=== PATIENT | female | born 1965 | race African-American/Black ===

== ENCOUNTER 2020-01-10 18:05 | Observation (INO) ==
[2020-01-10 19:01] LABS: Amorphous Crystals,Urine Few /HPF (Few); Apearance,Urine CLOUDY (Clear); Bilirubin,Urine Negative (Negative); Blood, Urine Negative (Negative); Glucose,Urine (UA) Negative (Negative); Ketones,Urine 5 mg/dL (Negative); Mucus,Urine Many /LPF (Occasional); Nitrite,Urine Negative (Negative); Protein,Urine 100 MG/DL; RBC,Urine 2 /HPF (0-4); Squamous Epithelial Cell,Urine Occasional /HPF (0-10); Urine Specific Gravity 1.026 (1.001-1.035); Urine Urobilinogen < 2.0 EU/DL (0.2-1.0); WBC,Urine 5 /HPF (0-6)
[2020-01-10 19:02] LABS: Urine Color Yellow (Yellow)
[2020-01-10 19:11] LABS: Basophils # 0.1 10*3/uL (0.0-0.2); Basophils % 0.4 % (0.0-0.8); Eosinophils # 0.1 10*3/uL (0.0-0.87); Eosinophils % 0.6 % (0.00-10.9); Hematocrit 42.9 VOL% (35.7-47.0); Hemoglobin 13.6 GM/DL (12.0-16.0); Immature Granulocytes % 0.3 %; Immature Granulocytes Absolute 0.04 #; Lymphocytes # 1.9 10*3/uL (1.4-4.0); Lymphocytes % 15.7 % (21.3-54.2); Mean Corpuscular HGB Conc 31.7 GM/DL (32-36); Mean Corpuscular Volume 87.2 FL (87-102); Mean Platelet Volume 12.2 FL (9.6-12.0); Monocytes % 4.6 % (1.7-12.7); Neutrophils % 78.4 % (38.7-73.9); Platelet Count 282 T/CUMM (130-400); Red Blood Count 4.92 MC/CUMM (3.8-5.5); Red Cell Distribution Width 15.9 % (9.3-17.3); White Blood Count 11.9 T/CUMM (4-12)
[2020-01-10 19:35] LABS: Albumin 4.1 G/DL (3.4-5.0); Bilirubin,Total 1.3 MG/DL (0.2-1.0); Calcium 9.4 MG/DL (8.5-10.1); Osmolality,Calculated 267.4 MOS/KG (273-304); Total Protein 9.2 G/DL (6.4-8.3)
[2020-01-10] MEDS ORDERED: HYDROmorphone 2 MG/1 ML VIAL IV STA (21:25)
[2020-01-10] MEDS ORDERED: SODIUM CHLORIDE 0.9% 500 ML IV STA (21:25)
[2020-01-10] MEDS ORDERED: ONDANSETRON 4 MG/2 ML VIAL IV STA ×2 (21:25→23:41)
[2020-01-10] MEDS ORDERED: HYDROmorphone 2 MG/1 ML VIAL ONE (21:26)
[2020-01-10] MEDS ORDERED: ONDANSETRON 4 MG/2 ML VIAL ONE (21:26)
[2020-01-10] MEDS ORDERED: PROMETHAZINE 25 MG/1 ML VIAL ONE (23:57)
[2020-01-10] MEDS ORDERED: diphenhydrAMINE 50 MG/1 ML VIAL IV STA (23:59)
[2020-01-10] MEDS ORDERED: PROMETHAZINE 25 MG/1 ML VIAL IM STA (23:59)
[2020-01-11] MEDS ORDERED: GLUCAGON 1 MG VIAL IM PRN (02:08)
[2020-01-11] MEDS ORDERED: ACETAMINOPHEN 325 MG TABLET PO PRN (02:08)
[2020-01-11] MEDS ORDERED: DEXTROSE 10% 250 ML BAG IV PRN (02:11)
[2020-01-11] MEDS: ONDANSETRON 4 MG/2 ML VIAL IV PRN ×3 (02:32→20:11)
[2020-01-11] MEDS: HYDROmorphone 2 MG/1 ML VIAL IV PRN ×6 (02:35→20:19)
[2020-01-11] MEDS: SODIUM CHLORIDE 0.9% 1,000 ML IV SCH ×2 (02:36→15:24)
[2020-01-11] MEDS: PIPERACILLIN/TAZOBACTAM 3,375 MG in SODIUM CHLORIDE 0.9% 100 ML IV SCH ×2 (04:42→15:26)
[2020-01-11] MEDS: INSULIN REGULAR 100 UNIT/ML SUBCUT SCH ×4 (05:58→22:59)
[2020-01-11 08:02] LABS: Basophils % 0.2 % (0.0-0.8); Eosinophils % 0.2 % (0.00-10.9); Hematocrit 41.4 VOL% (35.7-47.0); Hemoglobin 13.2 GM/DL (12.0-16.0); Immature Granulocytes % 0.3 %; Immature Granulocytes Absolute 0.04 #; Lymphocytes # 2.6 10*3/uL (1.4-4.0); Lymphocytes % 20.6 % (21.3-54.2); Mean Corpuscular HGB Conc 31.9 GM/DL (32-36); Mean Corpuscular Volume 86.4 FL (87-102); Monocytes % 6.5 % (1.7-12.7); Neutrophils % 72.2 % (38.7-73.9); Platelet Count 247 T/CUMM (130-400); Red Blood Count 4.79 MC/CUMM (3.8-5.5); Red Cell Distribution Width 15.9 % (9.3-17.3); White Blood Count 12.5 T/CUMM (4-12)
[2020-01-11 08:27] LABS: Albumin 3.8 G/DL (3.4-5.0); Bilirubin,Total 1.3 MG/DL (0.2-1.0); Calcium 9.2 MG/DL (8.5-10.1); Osmolality,Calculated 271.2 MOS/KG (273-304); Total Protein 8.7 G/DL (6.4-8.3)
[2020-01-11] MEDS: PANTOPRAZOLE 40 MG VIAL IV SCH (08:33)
[2020-01-11] MEDS ORDERED: ALBUTEROL 2.5 MG/3 ML NEB RESP TX PRN (09:05)
[2020-01-11] MEDS ORDERED: LIDOCAINE 1%/EPI INJ 20 ML VIAL ONE (15:45)
[2020-01-11] MEDS ORDERED: BUPIVACAINE MPF 0.25% 30 ML VIAL ONE (15:45)
[2020-01-11] MEDS ORDERED: TISSUE ADHESIVE 1 EACH APPLICATOR TOP ONE (16:12)
[2020-01-11] MEDS ORDERED: SUGAMMADEX 200 MG/2 ML VIAL IV ONE (16:13)
[2020-01-11] MEDS ORDERED: fentaNYL 100 MCG/2 ML VIAL ONE (16:28)
[2020-01-11] MEDS ORDERED: ONDANSETRON 4 MG/2 ML VIAL ONE ×2 (16:28→16:33)
[2020-01-11] MEDS ORDERED: SEVOFLURANE 1 UNIT/15 MINUTE INH ONE (16:28)
[2020-01-11] MEDS ORDERED: propofoL 200 MG/20 ML VIAL IV ONE (16:28)
[2020-01-11] MEDS ORDERED: LIDOCAINE 2% 5 ML VIAL ONE (16:28)
[2020-01-11] MEDS ORDERED: MIDAZOLAM 2 MG/2 ML VIAL ONE (16:28)
[2020-01-11] MEDS ORDERED: DEXAMETHASONE 4 MG/1 ML VIAL ONE (16:28)
[2020-01-11] MEDS ORDERED: ROCURONIUM 100 MG/10 ML VIAL IV ONE (16:29)
[2020-01-11] MEDS ORDERED: ONDANSETRON 4 MG/2 ML VIAL IV PRN (16:32)
[2020-01-11] MEDS ORDERED: HYDROmorphone 2 MG/1 ML VIAL ONE (16:33)
[2020-01-11] MEDS ORDERED: GABAPENTIN 300 MG CAPSULE PO SCH (21:00)
[2020-01-11] MEDS: PANTOPRAZOLE 40 MG TABLET PO SCH (22:05)
[2020-01-12] MEDS: SODIUM CHLORIDE 0.9% 1,000 ML IV SCH ×2 (03:32→05:46)
[2020-01-12 07:03] LABS: Basophils % 0.2 % (0.0-0.8); Eosinophils % 0.1 % (0.00-10.9); Hematocrit 40.3 VOL% (35.7-47.0); Hemoglobin 12.3 GM/DL (12.0-16.0); Immature Granulocytes % 0.3 %; Immature Granulocytes Absolute 0.04 #; Lymphocytes # 1.2 10*3/uL (1.4-4.0); Lymphocytes % 10.2 % (21.3-54.2); Mean Corpuscular HGB Conc 30.5 GM/DL (32-36); Mean Corpuscular Volume 89.6 FL (87-102); Mean Platelet Volume 14.2 FL (9.6-12.0); Monocytes % 4.1 % (1.7-12.7); Neutrophils % 85.1 % (38.7-73.9); Platelet Count 174 T/CUMM (130-400); Red Cell Distribution Width 15.8 % (9.3-17.3); White Blood Count 11.6 T/CUMM (4-12)
[2020-01-12] MEDS: INSULIN REGULAR 100 UNIT/ML SUBCUT SCH (07:09)
[2020-01-12 07:34] LABS: Hypochromasia 1+; Platelet Estimate Adequate
[2020-01-12 07:44] VITALS: BP 125/74
[2020-01-12] MEDS: PANTOPRAZOLE 40 MG TABLET PO SCH (08:55)
[2020-01-12] MEDS: PANTOPRAZOLE 40 MG VIAL IV SCH (08:56)
[2020-01-12] MEDS ORDERED: LOSARTAN 50 MG TABLET PO SCH (09:00)
[2020-01-12] MEDS ORDERED: QUEtiapine XR 50 MG TABLET PO SCH (09:00)
[2020-01-12] MEDS ORDERED: CETIRIZINE 10 MG TABLET PO SCH (09:00)
[2020-01-12] MEDS ORDERED: FERROUS SULFATE 325 MG TABLET PO SCH (09:00)
== END 2020-01-12 12:02 | disposition home or self-care (01) ==
LOC: N.ED 18:05 → N.EDINP 18:05 → N.3E 01-11 00:54
PROVIDERS: ADMIT Surgery; ATTEND Surgery

== ENCOUNTER 2020-11-25 03:51 | Observation (INO) ==
[2020-11-25] MEDS ORDERED: SODIUM CHLORIDE 0.9% 1,000 ML IV STA (04:06)
[2020-11-25 04:29] LABS: Basophils # 0.1 10*3/uL (0.0-0.2); Basophils % 0.4 % (0.0-0.8); Eosinophils # 0.3 10*3/uL (0.0-0.87); Eosinophils % 2.4 % (0.00-10.9); Hematocrit 41.9 VOL% (35.7-47.0); Hemoglobin 13.2 GM/DL (12.0-16.0); Immature Granulocytes % 0.3 %; Immature Granulocytes Absolute 0.04 #; Lymphocytes # 4.1 10*3/uL (1.4-4.0); Lymphocytes % 35.4 % (21.3-54.2); Mean Corpuscular HGB Conc 31.5 GM/DL (32-36); Mean Corpuscular Volume 88.8 FL (87-102); Mean Platelet Volume 12.8 FL (9.6-12.0); Monocytes % 6.1 % (1.7-12.7); Neutrophils % 55.4 % (38.7-73.9); Platelet Count 198 T/CUMM (130-400); Red Blood Count 4.72 MC/CUMM (3.8-5.5); Red Cell Distribution Width 14.8 % (9.3-17.3); White Blood Count 11.5 T/CUMM (4-12)
[2020-11-25 04:38] LABS: PT Patient Result 10.4 SECS (9.8-11.9)
[2020-11-25] MEDS ORDERED: methylPREDNISolone SOD SUC 125 MG/2 ML VIAL IV STA (04:43)
[2020-11-25] MEDS ORDERED: ALBUTEROL/IPRATROPIUM 3 ML NEB RESP TX STA (04:43)
[2020-11-25] MEDS ORDERED: LEVOFLOXACIN INJ 750 MG in PREMIX 1 EACH IV STA (05:01)
[2020-11-25] MEDS ORDERED: ONDANSETRON 4 MG/2 ML VIAL IV ONE (05:09)
[2020-11-25] MEDS ORDERED: MORPHINE 4 MG/1 ML VIAL IV STA (05:09)
[2020-11-25] MEDS ORDERED: ONDANSETRON 4 MG/2 ML VIAL ONE (05:09)
[2020-11-25] MEDS ORDERED: MORPHINE 4 MG/1 ML VIAL ONE (05:10)
[2020-11-25] MEDS ORDERED: hydrALAZINE 20 MG/1 ML VIAL IV PRN (05:29)
[2020-11-25] MEDS ORDERED: DEXTROSE 50% 25 GM/50 ML VIAL IV PRN ×3 (05:29→14:59)
[2020-11-25] MEDS ORDERED: diphenhydrAMINE CAP 25 MG CAPSULE PO PRN (05:29)
[2020-11-25] MEDS ORDERED: guaiFENesin/DM ER 600-30 MG TABLET PO PRN (05:29)
[2020-11-25] MEDS ORDERED: NICOTINE 21 MG/24 HR PATCH TRANSDERM PRN (05:29)
[2020-11-25] MEDS ORDERED: ACETAMINOPHEN 325 MG TABLET PO PRN (05:29)
[2020-11-25] MEDS ORDERED: GLUCAGON 1 MG VIAL IM PRN ×3 (05:29→14:59)
[2020-11-25] MEDS ORDERED: ONDANSETRON 4 MG/2 ML VIAL IV PRN (05:29)
[2020-11-25 05:36] LABS: Alanine Aminotransferase 27 U/L (13-56); Albumin 3.6 G/DL (3.4-5.0); Alkaline Phosphatase 103 U/L (45-117); Aspartate Amino Transferase 18 U/L (0-37); Bilirubin,Total < 0.39 MG/DL (0.2-1.0); Blood Urea Nitrogen 15 MG/DL (7-18); Calcium 8.4 MG/DL (8.5-10.1); Carbon Dioxide 24 MMOL/L (21-32); Estimated Glom Filtration Rate 101 ML/MIN; Glucose 148 MG/DL (74-106); Osmolality,Calculated 282.4 MOS/KG (273-304); Potassium 3.9 MMOL/L (3.5-5.1); Sodium 140 MMOL/L (136-145); Total Protein 7.8 G/DL (5.0-7.5)
[2020-11-25 05:38] LABS: Hypochromasia 1+
[2020-11-25 05:39] LABS: Microcytosis 1+; Ovalocytes Slight; Platelet Estimate Adequate
[2020-11-25] MEDS: ALBUTEROL/IPRATROPIUM 3 ML NEB RESP TX SCH ×3 (06:48→19:37)
[2020-11-25] MEDS ORDERED: SODIUM CHLORIDE 0.9% 1,000 ML IV ONE (14:43)
[2020-11-25] MEDS ORDERED: LEVALBUTEROL 0.63 MG/3 ML NEB RESP TX PRN (14:49)
[2020-11-25] MEDS ORDERED: MAGNESIUM SULF RIDER 2 GM in PREMIX 1 EACH IV ONE (15:01)
[2020-11-25] MEDS ORDERED: INSULIN LISPRO 100 UNIT/ML SUBCUT SCH (16:30)
[2020-11-25] MEDS: INSULIN LISPRO 100 UNIT/ML SUBCUT SCH ×2 (17:09→21:49)
[2020-11-25] MEDS: SODIUM CHLORIDE 0.9% 1,000 ML IV SCH (17:10)
[2020-11-25] MEDS: methylPREDNISolone SOD SUC 40 MG/1 ML VIAL IV SCH (17:10)
[2020-11-25] MEDS: BUDESONIDE/FORMOTEROL 80-4.5 INHALER 6.9 GM INH SCH (20:58)
[2020-11-26] MEDS: SODIUM CHLORIDE 0.9% 1,000 ML IV SCH ×3 (00:13→17:59)
[2020-11-26] MEDS: ALBUTEROL/IPRATROPIUM 3 ML NEB RESP TX SCH ×5 (00:49→19:28)
[2020-11-26 02:30] LABS: Basophils % 0.1 % (0.0-0.8); Hematocrit 39.7 VOL% (35.7-47.0); Hemoglobin 12.2 GM/DL (12.0-16.0); Immature Granulocytes % 0.4 %; Immature Granulocytes Absolute 0.08 #; Lymphocytes # 1.2 10*3/uL (1.4-4.0); Lymphocytes % 6.7 % (21.3-54.2); Mean Corpuscular HGB Conc 30.7 GM/DL (32-36); Mean Platelet Volume 12.9 FL (9.6-12.0); Neutrophils % 89.8 % (38.7-73.9); Platelet Count 191 T/CUMM (130-400); Red Blood Count 4.41 MC/CUMM (3.8-5.5); Red Cell Distribution Width 15.1 % (9.3-17.3); White Blood Count 17.8 T/CUMM (4-12)
[2020-11-26 02:47] LABS: Alanine Aminotransferase 25 U/L (13-56); Albumin 3.3 G/DL (3.4-5.0); Alkaline Phosphatase 86 U/L (45-117); Aspartate Amino Transferase 19 U/L (0-37); Bilirubin,Direct < 0.100 MG/DL (0.0-0.20); Bilirubin,Indirect 0.3 MG/DL (0.0-1.0); Bilirubin,Total < 0.39 MG/DL (0.2-1.0); Blood Urea Nitrogen 9 MG/DL (7-18); Calcium 8.5 MG/DL (8.5-10.1); Carbon Dioxide 20 MMOL/L (21-32); Estimated Glom Filtration Rate 80 ML/MIN; Glucose 207 MG/DL (74-106); Osmolality,Calculated 277.8 MOS/KG (273-304); Potassium 3.9 MMOL/L (3.5-5.1); Sodium 137 MMOL/L (136-145); Total Protein 7.8 G/DL (5.0-7.5)
[2020-11-26] MEDS: methylPREDNISolone SOD SUC 40 MG/1 ML VIAL IV SCH ×2 (03:49→15:59)
[2020-11-26] MEDS: LEVOFLOXACIN INJ 500 MG in PREMIX 1 EACH IV SCH (05:28)
[2020-11-26] MEDS: BUDESONIDE/FORMOTEROL 80-4.5 INHALER 6.9 GM INH SCH ×2 (08:38→20:58)
[2020-11-26] MEDS: INSULIN LISPRO 100 UNIT/ML SUBCUT SCH ×4 (08:40→20:55)
[2020-11-26] MEDS ORDERED: traZODone 50 MG TABLET PO PRN (10:42)
[2020-11-26] MEDS: OMEPRAZOLE ODT 20 MG TABLET PO SCH ×2 (11:38→20:54)
[2020-11-26] MEDS: VENLAFAXINE 75 MG TABLET PO SCH (11:38)
[2020-11-26] MEDS: amLODIPine 5 MG TABLET PO SCH (11:39)
[2020-11-26] MEDS: GABAPENTIN 600 MG TABLET PO SCH ×2 (15:58→20:55)
[2020-11-26] MEDS ORDERED: QUEtiapine 100 MG TABLET PO SCH (21:00)
[2020-11-27] MEDS: ALBUTEROL/IPRATROPIUM 3 ML NEB RESP TX SCH ×2 (01:07→07:38)
[2020-11-27] MEDS: SODIUM CHLORIDE 0.9% 1,000 ML IV SCH ×2 (02:00→08:39)
[2020-11-27] MEDS: methylPREDNISolone SOD SUC 40 MG/1 ML VIAL IV SCH (04:28)
[2020-11-27] MEDS: LEVOFLOXACIN INJ 500 MG in PREMIX 1 EACH IV SCH (05:33)
[2020-11-27] MEDS: GABAPENTIN 600 MG TABLET PO SCH (08:35)
[2020-11-27] MEDS: INSULIN LISPRO 100 UNIT/ML SUBCUT SCH (08:35)
[2020-11-27] MEDS: OMEPRAZOLE ODT 20 MG TABLET PO SCH (08:35)
[2020-11-27] MEDS: VENLAFAXINE 75 MG TABLET PO SCH (08:35)
[2020-11-27] MEDS: amLODIPine 5 MG TABLET PO SCH (08:35)
[2020-11-27] MEDS: BUDESONIDE/FORMOTEROL 80-4.5 INHALER 6.9 GM INH SCH (08:39)
[2020-11-27 08:58] LABS: Calcium 8.6 MG/DL (8.5-10.1); Osmolality,Calculated 289.1 MOS/KG (273-304)
[2020-11-27 09:22] LABS: Basophils % 0.1 % (0.0-0.8); Hematocrit 41.9 VOL% (35.7-47.0); Hemoglobin 13.1 GM/DL (12.0-16.0); Immature Granulocytes % 1.2 %; Immature Granulocytes Absolute 0.18 #; Lymphocytes # 0.8 10*3/uL (1.4-4.0); Lymphocytes % 5.2 % (21.3-54.2); Mean Corpuscular HGB Conc 31.3 GM/DL (32-36); Mean Corpuscular Volume 88.8 FL (87-102); Mean Platelet Volume 13.4 FL (9.6-12.0); Monocytes % 1.1 % (1.7-12.7); Neutrophils % 92.4 % (38.7-73.9); Platelet Count 165 T/CUMM (130-400); Red Blood Count 4.72 MC/CUMM (3.8-5.5); Red Cell Distribution Width 15.3 % (9.3-17.3); White Blood Count 14.6 T/CUMM (4-12)
[2020-11-27 09:31] LABS: Lymphocytes 8 % (20-55); Segmented Neutrophils 89 % (50-85); Total Cells Counted 100
[2020-11-27 12:12] VITALS: BP 146/86
== END 2020-11-27 12:05 | disposition home or self-care (01) ==
LOC: EDUNIT# → EDBD → SUATTDRO → N.ED 03:51 → N.EDINP 03:51 → N.3E 07:33
PROVIDERS: ADMIT Internal Medicine; ATTEND Internal Medicine